=== PATIENT | female | born 1955 | race African-American/Black ===

== ENCOUNTER 2018-11-24 10:08 | Inpatient (IN) | payer OTHER ==
[2018-11-24] VITALS (8 sets, daily range): BP systolic 139–208; BP diastolic 62–92
[~2018-11-24] VITALS: Ht 152.4 cm; Wt 87.5 kg
--- NOTE | ~2018-11-24 | CON ---
[address] [address] CONSULTATION Name: JEAN-CLAUDE RICCI Room: [address] IN M.R.#: [id number] Admission: 11/24/18 Attend Phys: Eduardo Cevallos MD Discharge: Date of : 53 Report #: [id number] THIS REPORT FOR: //name// CC: Eduardo Will DATE OF SERVICE: 11/25/2018 HISTORY OF PRESENT ILLNESS: This is a 63-year-old female patient who was evaluated by me for what looks like dizziness. She indicates that she is longstanding hypertensive. She did not take her medications. She has done that in the past also. She feels dizzy and some blurring of the vision. REVIEW OF SYSTEMS: Positive for pretty significant noncompliance for antihypertensive medicines in the past as well as now. She also drinks significant amount of alcohol. She had some nausea and vomiting. Overall, she is feeling much better with decrease in her blood pressure. REVIEW OF SYSTEMS: A 14-point review of system was carried out. She has Cardiology and respiratory symptom, which is being addressed by hospitalist and computer language coder and we will defer evaluation and treatment to them. PAST MEDICAL HISTORY: Similar symptoms when the blood pressure goes up and I am not sure why she stopped taking the medication, but from all indication, it looks like from noncompliance. FAMILY HISTORY: Negative for any early age stroke. SOCIAL HISTORY: She drinks 2-3 alcoholic drinks every day. PHYSICAL EXAMINATION: Indicate she is alert. She is responsive. She can follow simple commands. Her speech, concentration, fund of knowledge and memory is at her baseline. Cranial nerve examination 2-12 looks unremarkable. She moves all four extremities and her strength looks rather symmetrical. Cwqjqh-jp-agdo looks okay. I talked to the PT and he thinks she is okay with a walker, but she is going to need some walker. There is no papilledema in this patient. There is no meningeal sign. Her blood pressure is much better, 153/84. LABORATORY DATA: White count is 7.0. IMPRESSION: The patient's symptoms are most likely secondary to hypertensive encephalopathy. This is because of extreme amount of noncompliance. She also drinks a significant amount of alcohol and she needs to cut back. She is desperate to go home. I told her that it would be desirable to stay in the hospital until she starts walking better, but [place] [address] CONSULTATION Name: JEAN-CLAUDE RICCI Room: [address] IN [facility]#: [id number] Admission: 11/24/18 Attend Phys: Eduardo Cevallos MD Discharge: Date of : 53 Report #: [id number] However, after talking to her for a while, she agreed to get the MRI done before she goes home and if MRI is abnormal, then she will stay, but otherwise she will not. I told her that is not an ideal situation, but she still wants to go home. RECOMMENDATIONS: 1. I will suggest thiamine. 2. I will check B12 level. 3. If MRI and MRA is okay, the main management is going to be the management of vascular risk factors and those should include management of dyslipidemia as well as hypertension. She should cut back or eliminate her alcohol intake. Thank you very much for this referral. By: 1502 0451Pnidia Borges MD /nt
[2018-11-24] MEDS ORDERED: ASPIR 8181 MG PO ×2 (10:21→10:27)
[2018-11-24] MEDS ORDERED: COREG6.25 MG PO (10:21)
[2018-11-24] MEDS ORDERED: ZESTORETIC 10-1 EACH PO (10:21)
[2018-11-24 10:38] LABS: ABSOLUTE BASOPHILS 0.1 thou/uL (0.0-0.2); ABSOLUTE EOSINOPHILS 0.1 thou/uL (0.0-0.7); ABSOLUTE LYMPHOCYTES 2.8 thou/uL (0.8-5.3); ABSOLUTE MONOCYTES 0.6 thou/uL (0.0-1.2); ABSOLUTE NEUTROPHILS 3.5 thou/uL (1.6-8.1); BASOPHILS 0.9 %; EOSINOPHILS 1.4 %; HEMATOCRIT 46.5 % (37.0-47.0); HEMOGLOBIN 15.7 gm/dL (12.0-15.0); LYMPHOCYTES 39.6 %; MCH 32.6 pg (26.0-34.0); MCHC 33.8 g/dL (28.0-37.0); MCV 96.3 fL (80.0-100.0); MONOCYTES 7.9 %; MPV 8.5 fl. (7.2-11.1); NUCLEATED RBCS 0 /100WBC; PLATELET COUNT* 217 thou/uL (150-400); POLYS 50.2 %; RBC 4.83 mil/uL (4.20-5.00)
[2018-11-24 10:50] LABS: PROTIME 10.5 Seconds (9.20-11.50)
[2018-11-24 10:59] LABS: ALBUMIN 3.8 g/dL (3.4-5.0); CALCIUM 9.3 mg/dL (8.5-10.1); POTASSIUM 4.1 mmol/L (3.5-5.1); TOTAL BILIRUBIN 0.3 mg/dL (<0.1-1.0); TROPONIN-I LEVEL 0.11 ng/mL (<0.06)
--- NOTE | 2018-11-24 15:51 | 2DMMODE ---
[place] [address] 2 D/M-MODE ECHOCARDIOGRAM Name: JEAN-CLAUDE RICCI Room: [place] [address] ADM IN [facility]#: [id number] Admission: 11/24/18 Attend Phys: Eduardo Cevallos, Discharge: Date of : 53 Date of Service: 11/24/18 1551 Report #: [id number] THIS REPORT FOR: //name// APPROVED REPORT Study performed: 11/24/2018 15:05:25 EXAM: Comprehensive 2D, Doppler, and color-flow Echocardiogram Patient Location: In-Patient Room #: [facility] Status: routine BSA: 1.78 HR: 71 bpm BP: 208/92 mmHg Rhythm: NSR Other Information Study Quality: Good Indications Chest Pain 2D Dimensions IVSd: 14.23 (7-11mm) LVOT Diam: 1.86 (18-24mm) LVDd: 51.58 mm PWd: 11.75 (7-11mm) Ascending Ao: 29.96 (22-36mm) LVDs: 34.16 (25-40mm) Aortic Root: 25.31 mm Volumes Left Atrial Volume (Systole) LA ESV Index: 56.40 mL/m2 Aortic Valve AoV Peak Nish.: 2.13 m/s AO Peak Gr.: 18.17 mmHg LVOT Max P.18 mmHg AO Mean Gr.: 9.65 mmHg LVOT Mean P.55 mmHg LVOT Max V: 0.89 m/s AO V2 VTI: 40.79 cm LVOT Mean V: 0.57 m/s JOSE (VTI): 1.15 cm2 LVOT V1 VTI: 19.34 cm Mitral Valve E/A Ratio: 0.85 MV Decel. Time: 384.31 ms MV E Max Nish.: 1.32 m/[place] [address] 2 D/M-MODE ECHOCARDIOGRAM Name: JEAN-CLAUDE RICCI Room: [address] IN .R.#: [id number] Admission: 11/24/18 Attend Phys: Eduardo Cevallos, Discharge: Date of : 53 Date of Service: 11/24/18 1551 Report #: [id number] MV PHT: 111.45 ms MVA (PHT): 1.97 cm2 TDI E/Lateral E': 18.86 E/Medial E': 22.00 Medial E' Nish.: 0.06 m/s Lateral E' Nish.: 0.07 m/s Pulmonary Valve PV Peak Nish.: 1.15 m/s PV Peak Gr.: 5.25 mmHg Tricuspid Valve RAP Estimate: 5.00 mmHg TR Peak Gr.: 20.01 mmHg RVSP: 25.00 mmHg PA Pressure: 25.00 mmHg Left Ventricle The left ventricle is normal size. There is normal LV segmental wall motion. Moderate concentric left ventricular hypertrophy. Left ventricular systolic function is normal. LVEF is 55-60%. Grade I - abnormal relaxation pattern. Right Ventricle The right ventricle is normal size. The right ventricular systolic function is normal. Atria Left atrium is severely dilated. The right atrium size is normal. Aortic Valve Mild aortic valve sclerosis. No aortic regurgitation is present. Mild aortic stenosis. Mitral Valve There is mitral annular calcification. Mild mitral regurgitation. Mild mitral stenosis. Tricuspid Valve The tricuspid valve is normal in structure. Trace tricuspid regurgitation. No pulmonary hypertension. Pulmonic Valve The pulmonary valve is normal in structure. [place] [address] 2 D/M-MODE ECHOCARDIOGRAM Name: JEAN-CLAUDE RICCI Room: [address] IN [facility]#: [id number] Admission: 11/24/18 Attend Phys: Eduardo Cevallos, Discharge: Date of : 53 Date of Service: 11/24/18 1551 Report #: [id number] Great Vessels The aortic root is normal in size. IVC is normal in size and collapses >50% with inspiration. Pericardium There is no pericardial effusion. <Conclusion> The left ventricle is normal size. Moderate concentric left ventricular hypertrophy. Left ventricular systolic function is normal. LVEF is 55-60%. Grade I - abnormal relaxation pattern. Left atrium is severely dilated. Mild aortic valve sclerosis. Mild aortic stenosis. Mild mitral stenosis. Trace tricuspid regurgitation. No pulmonary hypertension. IVC is normal in size and collapses >50% with inspiration. <ELECTRONICALLY SIGNED> By: Reilly Ma MD, FACC 11/24/18 1551 1551 1551 Reilly Ma MD, FACC /INF
--- NOTE | 2018-11-24 17:10 | EKG ---
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 : 1955 Requested By: Eran Pinedo Order Number: [id number] MD: Reilly Ma Measurements Intervals [place] Rate: 64 P: 51 NM: 169 QRS: 68 QRSD: 103 T: 44 QT: 415 QTc: 428 Interpretive Statements Sinus rhythm Possible left atrial enlargement Left ventricular hypertrophy Compared to ECG 07/31/2008 07:35:41 Left ventricular hypertrophy now present Electronically Signed On 11-24-2018 17:10:03 CDT by Reilly Ma [email or web address] <ELECTRONICALLY SIGNED> By: Reilly Ma MD, [facility] 11/24/18 1710 1014 1014 Reilly Ma MD, [facility] /EPI
--- NOTE | 2018-11-24 17:34 | NUR ---
PT ADMITTED TO UNIT WITH HIGH BLOOD PRESSURE. ORTHOSTATIC BP OBTAINED AND DOCUMENTED. PT STAND BY TO BATHROOM. ON ROOM AIR. ECHO COMPLETED, US CAROTIDS COMPLETED. STRESS TEST TOMORROW. HYDRALAZINE GIVEN FOR HIGH BP. WILL ASSESS BP AGAIN. CARDIOLOGY AND NEUROLOGY CONSULT. NEURO CONSULTED FOR ATAXIA, NO PRESENT WHEN ASSESSING PT. PT STATES THEY HAVE EPISODES WHERE THEY GET DIZZY, NONE VOICED DURING ASSESSMENT. FALL RISK PRECAUTIONS IN PLACE. HOURLY ROUNDING COMPLETED. WILL CONTINUE TO MONITOR.
[2018-11-24 23:12] LABS: GLYCOHEMOGLOBIN (HGB A1C) 5.6 % (4.8-5.6)
[2018-11-25] VITALS (9 sets, daily range): BP systolic 129–207; BP diastolic 62–94
[2018-11-25 05:49] LABS: CHOLESTEROL 208 mg/dL (<200); HDL CHOLESTEROL 44 mg/dL (>40); LDL CHOLESTEROL 140 mg/dL (<100); TC:HDL 4.7 Ratio (Not establshd); TRIGLYCERIDE 120 mg/dL (<150); VLDL 24 mg/dL (<40)
--- NOTE | 2018-11-25 05:56 | NUR ---
PT IS ABLE TO COMMUNICATE HER NEEDS TO STAFF EFFECTIVELY. CURRENT PAIN MEDICATION REGIMEN HAS BEEN ADEQUATE FOR CONTROLLING HER PAIN UP TO THIS TIME. SHE HAS BEEN NPO SINCE MIDNIGHT FOR A POSSIBLE STRESS TEST LATER TODAY. TROPONIN HAS BEEN TRENDING DOWNWARD AT LAST CHECK.
[2018-11-25 05:59] LABS: SERUM ASSESSMENT Clear
[2018-11-25] MEDS ORDERED: LIPITOR 20 MG T20 M1 PO (09:24)
[2018-11-25] MEDS ORDERED: ZESTORETIC 20-1 EAC2 PO (09:24)
[2018-11-25] MEDS ORDERED: CARVEDILOL12.5 MG PO (09:24)
--- NOTE | 2018-11-25 13:39 | NUR ---
MET WITH PT TO DISCUSS HOME SITUATION/DC PLANNING. PT LIVES ALONE, IS INDEPENDENT AND ACTIVE. WORKS OUTSIDE THE HOME. HAS SUPPORTIVE FAMILY/FRIENDS. DENIES ANY DC NEEDS. WILL FOLLOW
[2018-11-26] VITALS: BP 136/46
[2018-11-26 04:00] VITALS: BP 150/73
--- NOTE | 2018-11-26 05:26 | NUR ---
PT IS ABLE TO COMMUNICATE HER NEEDS TO STAFF EFFECTIVELY. SHE HAS DENIED THE NEED FOR PAIN MEDICATION UP TO THIS TIME. PART TWO OF STRESS TEST TO BE LIKELY DONE LATER TODAY.
[2018-11-26 08:00] VITALS: BP 154/73
[2018-11-26 11:42] VITALS: BP 154/73
[2018-11-26 12:25] VITALS: BP 144/62
[2018-11-26] MEDS ORDERED: NORVASC5 MG PO (12:55)
--- NOTE | 2018-11-26 13:49 | NUR ---
RECEIVED REPORT FROM ALETHA SMALL. ASSUMED CARE OF PT AROUND 0730. PT A&O X4. VSS. PRINTING PRESSMAN IN PLACE TRACING SB/SR. AM ASSESSMENT AND VITALS COMPLETED CHARTED. PT HAS DENIED PAIN OR DISCOMFORT THIS SHIFT. IV INTACT AND SALINE LOCKED. PT COMPLETED SECOND PART OF STRESS TEST THIS MORNING. PT HOPEFULL TO LEAVE THIS AFTERNOON IF STRESS TEST NEGATIVE. FRIENDS VISITING IN ROOM NOW. LOW FALL RISK PRECAUTIONS IN PLACE. CALL LIGHT IS WITHIN REACH. HOURLY ROUNDING PERFORMED. WCTM.
--- NOTE | 2018-11-26 14:27 | CARDNUC ---
[place] [address] CARDIAC NUCLEAR IMAGING REPORT Name: JEAN-CLAUDE RICCI Room: [address] IN [facility]#: [id number] Admission: 11/24/18 Attend Phys: Eduardo Cevallos, Discharge: Date of : 53 Date of Service: 11/26/18 1426 Report #: [id number] THIS REPORT FOR: //name// APPROVED REPORT Imaging Protocol: Stress Tc-99m/Rest Tc-99m 2 days Study performed: 11/24/2018 15:35:00 Indication: Chest pain, Dyspnea, Troponin elevation Patient Location: In-Patient Room #: [facility] Stress Tech: Mariam Ness Stress Nurse: Paulina Jennings RN NM Tech:MARIANNE Lee Ht: 5 ft 0 in Wt: 180 lbs BSA: 1.78 m2 BMI: 35.15 Medical History Medical History: mi, cad, pci, hypertension Medications: carvedilol, oss328, lisinopril, hydralazine, lavetalol, ntg Allergies: nkda Cardiac Risk Factors: age, hypertension Previous Cardiac Procedures: pci Exercise History: Physically active Resting Data Rest SPECT myocardial perfusion imaging was performed in supine position 30 minutes following the intravenous injection of 32.6 mCi of Tc-99m Sestamibi. Time of rest injection: 904 Date: 11/26/2018 The images were gated to evaluate regional wall motion and calculate left ventricular ejection fraction. Administration Route: IV Administration Site: Left AC Pharmacologic Stress Pharmacologic stress test was performed by injecting Regadenoson 0.4 mg IV push over 10-15 seconds immediately followed by the intravenous injection of 39.8 mCi of Tc-99m Sestamibi. Time of stress injection: 10:05 Date: 11/25/2018 Administration Route: IV Administration Site: Left AC Gated Stress SPECT was performed 40 [place] [address] CARDIAC NUCLEAR IMAGING REPORT Name: JEAN-CLAUDE RICCI Room: [address] IN ..#: [id number] Admission: 11/24/18 Attend Phys: Eduardo Cevallos, Discharge: Date of : 53 Date of Service: 11/26/18 1426 Report #: [id number] injection. The images were gated to evaluate regional wall motion and calculate left ventricular ejection fraction. Prone imaging was performed. Stress Test Details Stress Test: Pharmacologic stress testing performed using 0.4 mg of regadenoson per 5 mL given IV over 10 seconds. Reason for pharmacologic stress test: physical limitation. HR Max Heart Rate (APMHR): 156 bpm Resting HR: 70 bpm Target HR (85% APMHR): 132 bpm Max HR Achieved: 101 bpm % of APMHR: 64 Recovery HR: 82 bpm HR response to stress: Normal HR response to stress BP Resting BP: 179/92 mmHg Max BP: 183/68 mmHg Recovery BP: 157/68 mmHg BP response to stress: Normal blood pressure response to stress. ECG Resting ECG: Sinus Rhythm Stress ECG: Sinus Rhythm ST Change: None Recovery ECG: Sinus Rhythm Recovery ST Change: None Clinical Reason for Termination: Completed protocol Stress Symptoms: None Nurse Comments ekg consult with dr. Arambula. Inferior leads st depression elevation in v1 and poss v2. ok to do test Stress ECG Conclusion negative ecg Study Quality Study: Good Artifact: Mild Breast artifact Lung Uptake: [place] [address] CARDIAC NUCLEAR IMAGING REPORT Name: RICCIJEAN-CLAUDE Daniele Room: [address] IN [facility]#: [id number] Admission: 11/24/18 Attend Phys: Eduardo Cevallos, Discharge: Date of : 53 Date of Service: 11/26/18 1426 Report #: [id number] Study Data At rest, the left ventricular ejection fraction was 50%.. Post stress, the left ventricular ejection was 45%.. SSS: 16 SRS: 5 SDS: 11 TID = 1.05. Perfusion Review of SPECT images at rest reveal a medium sized, moderate intensity mid to distal anterior, septal and apical perfusion defect, and normal perfusion in all other segments. Images after vasodilator stress show that this defect is mostly reversible with. This is compatible with an anterior ischemia Images were reviewed using [employer]. Wall Motion apical hypokinesis Nuclear Conclusion ECG Findings: negative for ischemia Clinical Findings: negative for ischemia Nuclear Findings: positive for ischemia Exercise Capacity: not assessed Left Ventricular Function: abnormal Risk Study: moderate Evidence of a medium sized anterior segment ischemic abnormality.A wall motion abnormality is present. <Conclusion> negative ecg <ELECTRONICALLY SIGNED> By: Mack Page MD, FACC 11/26/18 1426 1426 1426 Mack Page MD, FACC /INF
[2018-11-26 16:08] VITALS: BP 141/68
[2018-11-27] VITALS (19 sets, daily range): BP systolic 102–171; BP diastolic 46–80
--- NOTE | 2018-11-27 04:58 | NUR ---
ASSUMED CARE OF PT AT 1900 PT ALERT AND ORIENTED X4 VS AND ASSESSMENT AT BASELINE. PT REQUESTED AND RECIEVED MELATONIN 10 MGS BEFORE BED THEN SLEPT THROUGH THE NIGHT. WILL CONTINUE PLAN OF CARE.
[2018-11-27 05:14] LABS: CALCIUM 9.3 mg/dL (8.5-10.1); POTASSIUM 4.1 mmol/L (3.5-5.1)
--- NOTE | 2018-11-27 12:43 | EKG ---
[place] [address] ELECTROCARDIOGRAM REPORT Name: JEAN-CLAUDE RICCI Room: [place] [address] ADM IN M.R.#: [id number] Admission: 11/24/18 Attend Phys: Eduardo Cevallos MD Discharge: Date of : 53 Report #: [id number] THIS REPORT FOR: //name// [facility] Test Date: 2018-11-27 Test Time: 09:45:10 Pat Name: JEAN-CLAUDE JONESDWELL Department: Room: [place] [address] Gender: F Paper Inspector: : 1955 Requested By: Manohar Arambula Order Number: [id number] Reading MD: Manohar Arambula Measurements Intervals [place] Rate: 84 P: 64 LA: 168 QRS: 65 QRSD: 102 T: -50 QT: 363 QTc: 430 Interpretive Statements Sinus rhythm LVH with secondary repolarization abnormality ST depr, consider ischemia, inferior leads ST elevation, consider lateral injury Compared to ECG 11/24/2018 10:14:09 Possible ischemia now present ST (T wave) deviation now present Electronically Signed On 11-27-2018 12:43:07 CDT by Manohar Arambula [email or web address] <ELECTRONICALLY SIGNED> By: Manohar Arambula MD, [facility] 11/27/18 1243 0945 0945 Manohar Arambula MD, [facility] /EPI
--- NOTE | 2018-11-27 14:00 | CARD ---
[address] [address] CARDIAC CATH REPORT Name: JEAN-CLAUDE RICCI Room: [facility] IN [facility]#: [id number] Admission: 11/24/18 Attend Phys: Eduardo Cevallos MD Discharge: Date of : 53 Report #: [id number] THIS REPORT FOR: //name// APPROVED REPORT Study performed: 11/27/2018 07:56:45 Patient Details Patient Status: In-Patient Room #: 233 The patient is a 63 year-old female Event Personnel Manohar Arambula Ui Software Developer, Carmen Culp RN RN, Corby Bowie (Ricardo) Ras Molina James SOLAR ENERGY SPECIALIST Monitor Procedures Performed Art Access - R radial artery , Left Heart Catheterization Indication Positive stress test, Chest pain Risk Factors Arterial Hypertension, Hypercholesterolemia Previous Procedures/Diagnoses Previous PCI Admission/Lab Medications/Medications given during procedure Glycoprotein IllbIlla Inhibitors, Heparin Unfract. Procedure Narrative The patient was brought electively to the Cardiac Catheterization Laboratory and was prepped and draped in a sterile manner. The right wrist was infiltrated with 1% Lidocaine subcutaneous anesthesia. A Slender Glidesheath sheath was inserted into the right radial artery. Coronary angiography was performed using coronary diagnostic catheters. The right coronary system was accessed and visualized with a 6fr JR 4 catheter. The left coronary system was accessed and visualized with a 6 fr JL3.5 catheter. The left ventricle was accessed and visualized with a 6 fr pigtail catheter. Left ventricular/Aortic Valve gradient assessed via catheter pullback. Left ventriculogram was performed in METZGER projection. Closure device was deployed with a 6 Fr [place]band[place] [address] CARDIAC CATH REPORT Name: JEAN-CLAUDE RICCI Room: [address]#: [id number] Admission: 11/24/18 Attend Phys: Eduardo Cevallos MD Discharge: Date of : 53 Report #: [id number] hematoma. Intraoperative Conscious Sedation Sedation start time: 853 Case end Time: 939 Fentanyl 75 mcg Versed 4 mg Fluoro Time: 7.8 minutes Dose: DAP 79028 cGycm2 1047 mGy Contrast Type and Amount: Omnipaque 240 ml Coronary Angiography The patient's coronary anatomy is co- dominant. Diagnostic Cath Left Main 0% stenosis LAD 60% proximal and 95% mid stenosis Diagonal 1 small vessel with 90% mid stenosis Diagonal 2 small vessel with 80% ostial stenosis OM2 30% proximal stenosis Right Coronary previous stent in mid rca appeared to be chronically occluded Left Ventriculography The left ventricular ejection fraction is estimated to be 40-45%. Left ventricular wall motion abnormalities are present. There is no mitral insufficiency. mild inferior wall hypokinesis noted Hemodynamics The aortic pressure is 147/66 mmHg with a mean of 100 mmHg. The left ventricular pressure is 144/10 mmHg with a mean of mmHg. The left ventricular end diastolic pressure is 12 mmHg. There was no gradient across the aortic valve upon pullback. Pullback from the left ventricle to the aorta revealed no gradient across the aortic valve. PCI Technique Lesion Anticoagulation was achieved with Heparin. bolus of iv aggrastat given Percutaneous coronary intervention was performed on the proximal left anterior descending artery segment. The lesion stenosis prior to intervention was 95% with KALPESH 3 flow. A 6FR XB LAD 3.0 100CM Guide Catheter was used to engage the lm ostium. A IG: BMW 190cm Interventional Guidewire was used to cross the lesion[place] [address] CARDIAC CATH REPORT Name: JEAN-CLAUDE RICCI Room: [address] IN [facility]#: [id number] Admission: 11/24/18 Attend Phys: Eduardo Cevallos MD Discharge: Date of : 53 Report #: [id number] A Balloon catheter Trek RX 2.5 X 8 was inserted and inflated up to 16atm for 13seconds. Repeat angiography revealed the following post-dilatation results: 50% stenosis. STENT DEPLOYMENT A drug-eluting stent Ky RX Stent 3.0X34mm was inserted and inflated up to 10atm for 13seconds. Repeat angiography revealed the following post-stent deployment results: 0% stenosis. Additional Inflation: 11atm for 16seconds. Following placement of the long stent that extended from proximal to the first diagonal to beyond the takeoff of the second diagonal, the small second diagonal artery was no longer apperent, and was felt to have been occluded by the stent Final angiography reveals 0 % stenosis with KALPESH 3 flow. Conclusion 1. previous stent in mid rca appeared chronically occluded 2. 95% stenosis in mid lad 3. LVEF 40-45% 4. successful placement of a drug eluting stent in the mid lad Recommendations Cardiac Rehabilitation Referral Aggressive Medical Therapy Medications Administered Clopidogrel <ELECTRONICALLY SIGNED> By: Manohar Arambula MD, [facility] 11/27/18 1400 1400 1400Dadarby Arambula MD, FACC /INF
--- NOTE | 2018-11-27 15:59 | NUR ---
PT WENT FOR CATH FIRST THING THIS SHIFT AND RETURNED AT 1007. PT HAD C/O CHEST AND HIP PAIN, DR SAENZ AWARE OF CHEST PAIN AND STATED IT WAS TO BE EXPECTED, ORDERS FOR PAIN MEDS PROVIDED. PT TOLERATING RA AT THIS TIME AND PAIN NOW WELL MANAGED WITH IV PAIN MEDS. PT HAD NEW IV PLACED BY INFUSION THERAPY WITH SONOGRAM TECHNOLOGY AFTER IV INFILTRATED WITH IV FLUIDS. PT HAD RADIAL PRECAUTIONS AT THIS TIME AND WILL UPDATE NEXT RN TO HER PRECAUTIONS STATUS PT IS COMPLETE WITH VS AND RADIAL PRECAUTIONS. WILL SIGN OFF AT THIS TIME
--- NOTE | 2018-11-27 17:17 | NUR ---
ASSUMMED CARE OF PT. PT RESTING IN ROOM. FALL RISK PRECAUTIONS IN PLACE. HOURLY ROUNDING COMPLETED. WILL CONTINUE TO MONITOR.
--- NOTE | 2018-11-27 23:30 | NUR ---
ASSESSMENT COMPLETED CHARTED. VSS. TRACING NSR ON MONITOR. PT C/O HEADACHE, PRN TYLENOL GIVEN, PT RESTING COMFORTABLY. DRESSING TO RIGHT WRIST IS C/D/I. HOURLY ROUNDING FOR PT SAFETY. CLWR.
[2018-11-28] VITALS: BP 101/71
[2018-11-28 03:35] VITALS: BP 179/78
--- NOTE | 2018-11-28 04:11 | NUR ---
PT C/O CHEST PAIN AND STATES THAT IT IS THE SAME EARLIER IN THE AFTERNOON AFTER SHE RETURNED TO THE FLOOR. NO EKG CHANGES NOTED. PRN MORPHINE GIVEN WITH NEARLY IMMEDIATE PAIN RELIEF. CHARGE NURSE NOTIFIED.
[2018-11-28 04:58] LABS: HEMATOCRIT 41.8 % (37.0-47.0); HEMOGLOBIN 13.9 gm/dL (12.0-15.0); MCH 31.8 pg (26.0-34.0); MCHC 33.3 g/dL (28.0-37.0); MCV 95.3 fL (80.0-100.0); MPV 8.8 fl. (7.2-11.1); RBC 4.39 mil/uL (4.20-5.00); RDW-CV 13.9 % (10.5-14.5); WBC 5.2 thou/uL (4.0-11.0)
[2018-11-28 05:20] LABS: CALCIUM 9.1 mg/dL (8.5-10.1); CREATININE 0.9 mg/dL (0.6-1.3); POTASSIUM 3.7 mmol/L (3.5-5.1)
[2018-11-28 06:03] LABS: TROPONIN-I LEVEL 22.75 ng/mL (<0.06)
[2018-11-28 07:52] VITALS: BP 185/87
--- NOTE | 2018-11-28 09:03 | NUR ---
ASSUMED CARE OF PT THIS AM AROUND 0715- BARN OPERATOR IN PLACE ORDERED, TRACING SR- UPON ASSESSMENT PT NOTED TO BE RESTING IN BED, EYES CLOSED- PT A&O X4- CONTINENT OF BOWEL AND BLADDER- UP AD-HUBER IN ROOM, STEADY GAIT NOTED- LCTA, RESP EVEN AND UN-LABORED- VSS, O2 SAT 96% ON RA- ABD SOFT/ROUND/NON-TENDER, BS X4 QUADS- LAST BM REPORTED 11/27/18- IV NOTED TO LEFT FA INTACT- RIGHT WRIST POST CATH NOTED WITH DRESSING C/D/I; NO HEMATOMA NOTED-PRN TYLENOL GIVEN THIS AM AT 0828 R/T C/O LEFT ARM PAIN 11/08- CALL LIGHT AND PERSONAL BELONGINGS WITH IN REACH- HOURLY ROUNDS IN PLACE R/T SAFETY/NEEDS- ALL NEEDS MET AT THIS TIME-WCTM
[2018-11-28 09:15] VITALS: BP 157/60
[2018-11-28] MEDS ORDERED: PLAVIX 75 MG TA75 M1 PO (09:17)
[2018-11-28] MEDS ORDERED: NITROGLYCERIN0.4 MG SUBLING (09:41)
[2018-11-28] MEDS ORDERED: ATORVASTATIN CA40 MG PO (09:41)
[2018-11-28] MEDS ORDERED: CARVEDILOL12.5 MG PO (09:41)
--- NOTE | 2018-11-28 10:51 | EKG ---
[place] [address] ELECTROCARDIOGRAM REPORT Name: JEAN-CLAUDE RICCI Room: [place] [address] ADM IN M.R.#: [id number] Admission: 11/24/18 Attend Phys: Eduardo Cevallos MD Discharge: Date of : 53 Report #: [id number] THIS REPORT FOR: //name// [facility] Test Date: 2018-11-28 Test Time: 03:32:09 Pat Name: JEAN-CLAUDE RICCI Department: Room: [place] [address] Gender: F Silk Brusher: PAULA : 1955 Requested By: Manohar Arambula Order Number: [id number] Reading MD: Manohar Arambula Measurements Intervals [place] Rate: 71 P: 54 MI: 177 QRS: 85 QRSD: 108 T: -6 QT: 441 QTc: 480 Interpretive Statements Sinus rhythm Probable left atrial enlargement Borderline right axis deviation Left ventricular hypertrophy ST elevation, consider lateral injury Borderline prolonged QT interval Compared to ECG 11/27/2018 09:45:10 Early repolarization no longer present ST (T wave) deviation still present Electronically Signed On 11-28-2018 10:51:45 CDT by Manohar Arambula [email or web address] <ELECTRONICALLY SIGNED> By: Manohar Arambula MD, FAC 11/28/18 1051 0332 0332 Manohar Arambula MD, FAC /EPI
[2018-11-28 12:00] VITALS: BP 134/83
--- NOTE | 2018-11-28 13:02 | NUR ---
ORDERS RECIEVIED FOR OKAY FOR PT TO BE D/C'D THIS SHIFT PER - AND OKAY PER AFTER LUNCH AND WALK AROUND UNIT- PT NOTED WITH GOOD PO INTAKE WITH LUNCH AND NO C/O POST AMBULATION AROUND UNIT POST LUNCH- IV TO LEFT FA D/C'D ALONG WITH REPORTING LEAD PRIOR TO D/C- D/C EDUCATION/TEACHING/NEEDED FOLLOW UPS GIVEN TO PT PRIOR TO D/C WITH ALL QUESTIONS AND CONCERNS ADDRESSED PRIOR TO D/C- WRITTEN EDUCATION ALONG WITH SCRIPTS PROVIDED TO PT PRIOR TO D/C- BELONGINGS PACKED AND ACCOUNTED FOR PER PT AND FRIEND- PT ESCORTED PER TECH VIA W/C WITH BELONGINGS; FRIEND AT SIDE TO FRIENDS VEHICLE AT 1305- NO PROBLMES TO NOTE AT TIME OF D/C
== END 2018-11-28 13:05 | disposition home or self-care (01) | DRG 247 ==
LOC: M.ERS 10:08 → M.TBA-ER 13:31 → M.2W 13:31
PROVIDERS: Emergency Medicine; Internal Medicine Cardiovascular Disease; Registered Nurse; ADMIT Internal Medicine
PROC: B2151ZZ Fluoroscopy of Left Heart using Low Osmolar Contrast (ICD-10-PCS; principal; 2018-11-27)
PROC: B2111ZZ Fluoroscopy of Multiple Coronary Arteries using Low Osmolar Contrast (ICD-10-PCS; principal; 2018-11-27)
PROC: 027034Z Dilation of Coronary Artery, One Artery with Drug-eluting Intraluminal Device, Percutaneous Approach (ICD-10-PCS; principal; 2018-11-27)
PROC: 4A023N7 Measurement of Cardiac Sampling and Pressure, Left Heart, Percutaneous Approach (ICD-10-PCS; principal; 2018-11-27)
DX: I25.110 Atherosclerotic heart disease of native coronary artery with unstable angina pectoris (principal); I16.1 Hypertensive emergency; T82.897A Other specified complication of cardiac prosthetic devices, implants and grafts, initial encounter; I43 Cardiomyopathy in diseases classified elsewhere; I10 Essential (primary) hypertension; Y83.8 Other surgical procedures as the cause of abnormal reaction of the patient, or of later complication, without mention of misadventure at the time of the procedure; R73.03 Prediabetes; E78.5 Hyperlipidemia, unspecified; Z95.5 Presence of coronary angioplasty implant and graft; I25.2 Old myocardial infarction; Z79.82 Long term (current) use of aspirin; Z90.710 Acquired absence of both cervix and uterus; Z79.899 Other long term (current) drug therapy; Z82.49 Family history of ischemic heart disease and other diseases of the circulatory system; Y92.89 Other specified places as the place of occurrence of the external cause

== ENCOUNTER → 2020-02-29 | Outpatient (CLI) | payer OTHER ==
[~2020-02-29] MED LIST: ASPIR 8181 MG PO; ATORVASTATIN CA40 MG PO; CARVEDILOL12.5 MG PO; COREG6.25 MG PO; LIPITOR 20 MG T20 M1 PO; NITROGLYCERIN0.4 MG SUBLING; NORVASC5 MG PO; PLAVIX 75 MG TA75 M1 PO; ZESTORETIC 10-1 EACH PO; ZESTORETIC 20-1 EAC2 PO
== END ==
LOC: M.RAD 14:52
PROVIDERS: ATTEND Family Medicine
DX: Z12.31 Encounter for screening mammogram for malignant neoplasm of breast (principal)